=== PATIENT | female | born 1960 | race Caucasian/White ===

== ENCOUNTER 2019-12-14 14:44 | Emergency (ER) | payer BC, OTHER ==
--- OUTSIDE RECORDS SUMMARY | 2019-12-14 14:47 | XMS REPORT | Summary of Care ---
:1960 Author Organization [facility] [employer] Address [address] [place] [address] Care Team Providers Name Role Phone Ora Whiteside Primary Care Provider Reason for Visit Reason Comments Notification Encounter Details Date Type Department Care Team Description 12/13/2019 Telephone [facility] Family Medicine Dakotah Gomez MD Notification - [place] [address] [facility] [address] [place] [address] [place] [phone] Allergies Active Allergy Reactions Severity Noted Date Comments Ciprofloxacin Nausea and/or Vomiting 09/29/2018 Gabapentin Dizziness 01/17/2019 documented as of this encounter (statuses as of 12/14/2019) Medications Medication Sig Dispensed Refills Start Date End Date Status SERTRALINE HCL Take 250 mg by 0 Active (SERTRALINE ORAL) mouth. ALPRAZOLAM (XANAX Take by mouth. 0 Active ORAL) albuterol 90 Inhale 2 Puffs 8.5 g 1 09/29/2018 Active mcg/actuation every 6 (six) hours inhalerIndications: as needed for Bronchitis Wheezing or Shortness of Breath. documented as of this encounter (statuses as of 12/14/2019) Active Problems Problem Noted Date Low back pain 12/05/2015 Radiculitis, lumbosacral 12/05/2015 documented as of this encounter (statuses as of 12/14/2019) Social History Tobacco Use Types Packs/Day Years Used Date Never Smoker Smokeless Tobacco: Never Used Alcohol Use Drinks/Week oz/Week Comments No Sex Assigned at Date Recorded Not on file Job Start Date Occupation Industry Not on file Not on file Not on file Travel History Travel Start Travel End No recent travel history available. documented as of this encounter Last Filed Vital Signs Not on filedocumented in this encounter Plan of Treatment Health Maintenance Due Date Last Done Comments HEPATITIS C (HCV) SCREEN 1960 DTaP,Tdap,and Td Vaccines (1 - 1971 Tdap) PAP SMEAR 1981 Breast Cancer Screening 2000 (MAMMOGRAM) COLONOSCOPY 2010 Zoster Recombinant Vaccine 2010 (SHINGRIX) (1 of 2) INFLUENZA VACCINE (#1) 2019 PNEUMOCOCCAL 0-64 YEARS COMBINED Aged Out No longer eligible based on SERIES patient's age to complete this topic documented as of this encounter Results Not on filedocumented in this encounter Additional Health Concerns Infection Noted Time Resolved Time COVID-19 Confirmed 12/12/2019 2:36 PM CDT documented as of this encounter Insurance Payer Benefit Plan Subscriber ID Effective Dates Phone Address Type / Group BCBS OF [facility] [id number] 2013-Krissy [phone] [address] PPO/POS [place] - OUT OF t 7 [id number] [place] [address] documented as of this encounter
--- OUTSIDE RECORDS SUMMARY | 2019-12-14 14:47 | XMS REPORT ---
:1960 Author Organization [facility] Address [address] [place] [address] [address] [place] [address] Care Team Providers Name Role Phone Unavailable Unavailable Unavailable Problems This patient has no known problems. Allergies, Adverse Reactions, Alerts This patient has no known allergies or adverse reactions. Medications This patient has no known medications.
--- OUTSIDE RECORDS SUMMARY | 2019-12-14 14:47 | XMS REPORT | Summary of Care ---
:1960 Author Organization [facility] Address [address] [place] [id number] Care Team Providers Name Role Phone Ora Whiteside Primary Care Provider Reason for Visit Reason Comments Results Encounter Details Date Type Department Care Team Description 12/12/2019 Telephone [facility] Family Medicine Neha Alcantar FNP Results - [place] [address] [facility] [address] [place] [address] [place] [address] [phone] Allergies Active Allergy Reactions Severity Noted Date Comments Ciprofloxacin Nausea and/or Vomiting 09/29/2018 Gabapentin Dizziness 01/17/2019 documented as of this encounter (statuses as of 12/12/2019) Medications Medication Sig Dispensed Refills Start Date End Date Status SERTRALINE HCL Take 250 mg by 0 Active (SERTRALINE ORAL) mouth. ALPRAZOLAM (XANAX Take by mouth. 0 Active ORAL) albuterol 90 Inhale 2 Puffs 8.5 g 1 09/29/2018 Active mcg/actuation every 6 (six) hours inhalerIndications: as needed for Bronchitis Wheezing or Shortness of Breath. documented as of this encounter (statuses as of 12/12/2019) Active Problems Problem Noted Date Low back pain 12/05/2015 Radiculitis, lumbosacral 12/05/2015 documented as of this encounter (statuses as of 12/12/2019) Social History Tobacco Use Types Packs/Day Years [...] Results Not on filedocumented in this encounter Insurance Payer Benefit Plan Subscriber ID Effective Dates Phone Address Type / Group BCBS OF [facility] [id number] 2013-Krissy [phone] [address] PPO/POS [place] - OUT OF t 7 [id number] [place] [address] documented as of this encounter
--- OUTSIDE RECORDS SUMMARY | 2019-12-14 14:47 | XMS REPORT | Summary of Care ---
:1960 Author Organization [facility] Address [address] [place] [address] Care Team Providers Name Role Phone Ora Whiteside Primary Care Provider Reason for Visit Reason Comments Cough Body Aches Fever Headache Encounter Details Date Type Department Care Team Description 12/10/2019 Urgent Care [facility] Family Praful Duque MD [address] [place] [address] Viral illness (Primary Dx); [place] [id number], Acute Care Clinic Fever, unspecified fever cause [address] [place] [address] Allergies Active Allergy Reactions Severity Noted Date Comments Ciprofloxacin Nausea and/or Vomiting 09/29/2018 Gabapentin Dizziness 01/17/2019 documented as of this encounter (statuses as of 12/10/2019) Medications Medication Sig Dispensed Refills Start Date End Date Status SERTRALINE HCL Take 250 mg by 0 Active (SERTRALINE ORAL) mouth. ALPRAZOLAM (XANAX Take by mouth. 0 Active ORAL) albuterol 90 Inhale 2 Puffs 8.5 g 1 09/29/2018 Active mcg/actuation every 6 (six) hours inhalerIndications: as needed for Bronchitis Wheezing or Shortness of Breath. documented as of this encounter (statuses as of 12/10/2019) Active Problems Problem Noted Date Low back pain 12/05/2015 Radiculitis, lumbosacral 12/05/2015 documented as of this encounter (statuses as of 12/10/2019) Social History Tobacco Use Types Packs/Day Years Used Date Never Smoker Smokeless Tobacco: Never Used Alcohol Use Drinks/Week oz/Week Comments No Sex Assigned at Date Recorded Not on file Job Start Date Occupation Industry Not on file Not on file Not on file Travel History Travel Start Travel End No recent travel history available. documented as of this encounter Last Filed Vital Signs Vital Sign Reading Time Taken Comments Blood Pressure 144/88 12/10/2019 12:13 PM CDT Pulse 99 12/10/2019 12:13 PM CDT Temperature 37.1 C (98.8 F) 12/10/2019 12:13 PM CDT Respiratory Rate - - Oxygen Saturation 94% 12/10/2019 12:13 PM CDT Inhaled Oxygen Concentration - - Weight 111.1 kg (245 lb) 12/10/2019 12:13 PM CDT Height 166.4 cm (5' 5.5") 12/10/2019 12:13 PM CDT Body Mass Index 40.15 12/10/2019 12:13 PM CDT documented in this encounter Patient Instructions Patient InstructionsNeha Alcantar FNP - 12/10/2019 12:00 PM CDT1. Viral illness - POCT FLU A AND B (MOLECULAR) - NEGATIVE - CORONAVIRUS COVID-19 TESTING; Future - Quarantine until your COVID results are back Educated on the following at home care: -Increase water intake, min 64 oz daily -Advised to increase fluid intake, ensure to stay hydrated, and get plenty of rest -Take over the counter vitamin C -Take Tylenol as needed, avoid nsaids - Pt advised to clean all high risk surfaces -Wash hands often; use alcohol based hand fluid power mechanic that contains at least 60% alcohol -Cover mouth when coughing, wear mask -Stay in your own bedroom and use a separate bathroom -Keep at least 6 feet from you and others -Avoid sharing personal household items, dishes, glasses, cups, towels -Clean high traffic/touch areas daily. These include but not limited to: doorknobs, refrigerator/cabinet handles, phones, keyboards, tablets, light switches. -Monitor your symptoms. Take your temperature 2 times daily. -Monitor your symptoms. Go to the ED if worsening symptoms: chest pain, difficulty breathing, coughing up blood, weakness, dizziness, passing out. Follow-up with PCP as needed, if no improvement EDUCATION: Handouts given: "What to do if you are sick with COVID-19" CDC information guide reviewed with the patient and handout given to patient FOLLOW UP: Pt advised to call 911 or go to the nearest Emergency Department sooner for any worsening, persistent, or concerning symptoms ER precautions given documented in this encounter Progress Notes Neha Alcantar FNP - 12/10/2019 12:00 PM CDT Cc: Chief Complaint Patient presents with Cough Body Aches Fever Headache Rosa Heart is a 59 year old female presents to with concern for fever , body aches and cough. She started about 2 days ago with fever, cough, body aches and headache. TMAX 101. She's not takenany otc medications. She initially though it was from home improvements going on at her house. Denies any runny nose or congestion. Last night she had chills. She denies any travel or positive covid-19contacts. She denies any sob. URI Presenting symptoms: cough, fatigue and fever Presenting symptoms: no congestion, no ear pain, no facial pain, no rhinorrhea and no sore throat Cough: Cough characteristics: Dry Severity: Mild Onset quality: Gradual Duration: 2 days Timing: Intermittent Progression: Unchanged Chronicity: New Fatigue: Severity: Mild Duration: 1 day Timing: Intermittent Progression: Unchanged Severity: Mild Onset quality: Gradual Duration: 2 days Timing: Intermittent Progression: Unchanged Chronicity: New Relieved by: None tried Worsened by: Nothing Ineffective treatments: None tried Associated symptoms: myalgias Associated symptoms: no arthralgias, no headaches, no neck pain, no sinus pain, no sneezing, no swollen glands and no wheezing Risk factors: no chronic cardiac disease, no chronic kidney disease, no chronic respiratory disease,no diabetes mellitus, no immunosuppression, no recent illness, no recent travel and no sick contacts Allergies Rosa is allergic to ciprofloxacin and gabapentin. Medications Outpatient Medications Prior to Visit Medication Sig Dispense Refill albuterol 90 mcg/actuation inhaler Inhale 2 Puffs every 6 (six) hours as needed for Wheezing or Shortness of Breath. 8.5 g 1 ALPRAZOLAM (XANAX ORAL) Take by mouth. SERTRALINE HCL (SERTRALINE ORAL) Take 250 mg by mouth. No facility-administered medications prior to visit. Histories Past Medical History: Diagnosis Date Depression Past Surgical History: Procedure Laterality Date APPENDECTOMY SPINE SURGERY Social History Socioeconomic History Marital status: Spouse name: Not on file Number of children: Not on file Years of education: Not on file Highest education level: Not on file Occupational History Not on file Social Needs Financial resource strain: Not on file Food insecurity: Worry: Not on file Inability: Not on file Transportation needs: Medical: Not on file Non-medical: Not on file Tobacco Use Smoking status: Never Smoker Smokeless tobacco: Never Used Substance and Sexual Activity Alcohol use: No Drug use: No Sexual activity: Not on file Lifestyle Physical activity: Days per week: Not on file Minutes per session: Not on file Stress: Not on file Relationships Social connections: Talks on phone: Not on file Gets together: Not on file Attends yarsani service: Not on file Active member of club or organization: Not on file Attends meetings of clubs or organizations: Not on file Relationship status: Not on file Intimate partner violence: Fear of current or ex partner: Not on file Emotionally abused: Not on file Physically abused: Not on file Forced sexual activity: Not on file Other Topics Concern Not on file 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 HENT: Negative for congestion, ear pain, rhinorrhea, sinus pain, sneezing and sore throat. Respiratory: Positive for cough. Negative for shortness of breath, wheezing and stridor. Gastrointestinal: Negative for diarrhea, nausea and vomiting. Musculoskeletal: Positive for myalgias. Negative for arthralgias and neck pain. Skin: Negative for rash. Neurological: Negative for dizziness, weakness and headaches. All other systems reviewed and are negative. Vital Signs BP (!) 144/88 | Pulse 99 | Temp 37.1 C (98.8 F) (Tympanic) | Ht 5' 5.5" ( 1.664 m) | Wt 245 lb (111.1 kg) | SpO2 94% | BMI 40.15 kg/m Physical Exam Constitutional: She is oriented to person, place, and time. She appears well- developed and well-nourished. HENT: Head: Normocephalic and atraumatic. Right Ear: Tympanic membrane, external ear and ear canal normal. Left Ear: Tympanic membrane, external ear and ear canal normal. Nose: Nose normal. Mouth/Throat: Uvula is midline, oropharynx is clear and moist and mucous membranes are normal. Tonsils are 1+ on the right. Tonsils are 1+ on the left. Eyes: Conjunctivae are normal. Neck: Normal range of motion. Neck supple. Cardiovascular: Normal rate, regular rhythm and normal heart sounds. Exam reveals no gallop and no friction rub. No murmur heard. Pulmonary/Chest: Effort normal and breath sounds normal. No respiratory distress. She has no wheezes. She has no rales. Musculoskeletal: Normal range of motion. Neurological: She is alert and oriented to person, place, and time. Skin: Skin is warm and dry. Psychiatric: She has a normal mood and affect. Her behavior is normal. Nursing note and vitals reviewed. Assessment/Plan Rosa Heart is a 59 year old female presents to with concern for fever , body aches and cough. 1. Viral illness - POCT FLU A AND B (MOLECULAR) - NEGATIVE - CORONAVIRUS COVID-19 TESTING; Future - Quarantine until your COVID results are back - COVID-19 handout given Educated on the following at home care: -Increase water intake, min 64 oz daily -Advised to increase fluid intake, ensure to stay hydrated, and get plenty of rest -Take over the counter vitamin C -Take Tylenol as needed, avoid nsaids - Pt advised to clean all high risk surfaces -Wash hands often; use alcohol based hand fluid power mechanic that contains at least 60% alcohol -Cover mouth when coughing, wear mask -Stay in your own bedroom and use a separate bathroom -Keep at least 6 feet from you and others -Avoid sharing personal household items, dishes, glasses, cups, towels -Clean high traffic/touch areas daily. These include but not limited to: doorknobs, refrigerator/cabinet handles, phones, keyboards, tablets, light switches. -Monitor your symptoms. Take your temperature 2 times daily. -Monitor your symptoms. Go to the ED if worsening symptoms: chest pain, difficulty breathing, coughing up blood, weakness, dizziness, passing out. Follow-up with PCP as needed, if no improvement EDUCATION: Handouts given: "What to do if you are sick with COVID-19" CDC information guide reviewed with the patient and handout given to patient FOLLOW UP: Pt advised to call 911 or go to the nearest Emergency Department sooner for any worsening, persistent, or concerning symptoms ER precautions given 2. Fever, unspecified fever cause - POCT FLU A AND B (MOLECULAR) - NEGATIVE - CORONAVIRUS COVID-19 TESTING; Future - Quarantine until your COVID results are back Plan of care, desired health behaviors, goals, and medication discussed with patient. Education resources provided and reviewed with AVS. Patient/guardian/family verbalized understanding & agrees to plan of care. If applicable, the [employer] database was accessed to review any controlled substance prescription claims data. The [employer] prescription claims data in [employer] was reviewed to assess patient compliance with the medication treatment plan. Urgent Care precautions and follow up : 1. Return to clinic if your symptoms should worsen or fail to improve within 72 hours. 2. The care provided in the urgent care was for acute problems only. 3. You should follow up with your primary care provider within 72 hours. 4. Make sure you are staying adequately hydrated. MAY FOLLOW-UP WITH A PROVIDER OF YOUR CHOICE, SUCH : 1. A PHYSICIAN OF YOUR CHOICE OR, IF YOU WISH TO FOLLOW-UP WITHIN THE [facility], MAY TRY THESE OPTIONS (CLINIC APPOINTMENTS AVAILABLE ON [id number] BASIS): 1. SCHEDULE AN APPOINTMENT ONLINE AT [email or web address] 2. OR CALL THE [facility] AT OR 3. OR CALL YOUR [facility] PHYSICIAN'S OFFICE DIRECTLY IF YOU ARE ALREADY AN ESTABLISHED [facility] PATIENT. After hours care nurse access center available by calling [phone] 24 hours 7 days per week. Neha HOLLIS [facility] Milvia Guzman MA - 12/10/2019 12:00 PM CDTPt states her symptoms started Wednesday evening she felt run down, body aches, fever, dry cough, headache. Fever last night 101.0 this morning 99.6, before she left 99.0, fever has been coming down since this morning. No flu vaccine this seasonElectronically signed by Milvia Madden MA at 12/09 12:39 PM CDTdocumented in this encounter Plan of Treatment Name Type Priority Associated Diagnoses Order Schedule CORONAVIRUS COVID-19 LAB Routine Viral illness Expected: 12/10/2019, TESTING Fever, unspecified fever Expires: 12/09/2020 cause Health Maintenance Due Date Last Done Comments [...] this topic documented as of this encounter Procedures Procedure Name Priority Date/Time Associated Diagnosis Comments POCT FLU A AND B Routine 12/10/2019 Viral illness Results for this (MOLECULAR) Fever, unspecified procedure are in the fever cause results section. documented in this encounter Results POCT FLU A AND B (MOLECULAR) (12/10/2019) POCT INFLUENZA A neg Negative - Negative POCT INFLUENZA B neg Negative - Negative Specimen Swab documented in this encounter Visit Diagnoses Diagnosis Viral illness - Primary Unspecified viral infection, in conditions classified elsewhere and of unspecified site Fever, unspecified fever cause documented in this encounter Insurance Payer Benefit Plan Subscriber ID Effective Dates Phone Address Type / Group [facility] [id number] 2013-Krissy [phone] [address] PPO/POS [place] - OUT OF t 7 [id number] [place] [address] documented as of this encounter
--- OUTSIDE RECORDS SUMMARY | 2019-12-14 14:47 | XMS REPORT | Summary of Care ---
:1960 Author Organization [facility] Address [address] [place] [address] Care Team Providers Name Role Phone Ora Whiteside Primary Care Provider Reason for Visit Reason Comments Fever Encounter Details Date Type Department Care Team Description 12/09/2019 Telemedicine Visit [facility] Urgent Praful Duque MD [address] [facility] [address] [place] [address] Cough (Primary Dx); [facility] Care, Provider 7 Adult Urgent Fever, unspecified fever cause; [place] Advice Given About Covid-19 Virus by Telephone [address] [facility] [address] [place] [address] Allergies Active Allergy Reactions Severity Noted Date [...] Signs Not on filedocumented in this encounter Progress Notes Praful Duque MD - 12/10/2019 10:45 AM CDT TELEHEALTH NOTE Verbal consent obtained from Patient: Rosa Heart for telehealth services provided below. Communication with patient was conducted via Telephone. Location of Patient: Home Location of Provider: Home Date of Service: 12/10/2019 Chief Complaint: Fever and cough HPI: Rosa Heart is a 59 year old female with c/o Cough and Fever. Wednesday evening started coughing, ache in body, had chills, Wednesday am temp 100 degree 5pm 99.7 now 101 F. 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 Did not have the Flu Vaccine Past Medical History: Diagnosis Date Depression MEDICATIONS: No outpatient medications have been marked as taking for the 12/10/19 encounter ( Appointment) with Care, Provider 7 Adult Urgent. ROS Fever+ Cough+ non productive Mild-Mod SOB +ve exposure to public (no body was coughing) No Known +ve COVID-19 exposure +ve Body ache Denies FRITZ Denies CP Mild - Mod SOB TELEHEALTH EXAM Patient alert and Oriented mild distress Coughing Alert and oriented ASSESSMENT/ PLAN Rosa Heart is a 59 year old female with PMH as above presenting with: R05 Cough (primary encounter diagnosis) R50.9 Fever, unspecified fever cause Z71.89 Advice Given About Covid-19 Virus by Telephone CRITERIA FOR COVID-19 TESTING Per [facility] Guidelines: ([email or web address]) Clinical Features Epidemiologic Risk 1. Fever or signs/symptoms of lower respiratory illness (e.g. cough or shortness of breath) AND 1. Any person, including health care workers, who has had close contact with a laboratory-confirmed COVID-19 patient within 14 days of symptom onset 2. Fever and signs/symptoms of a lower respiratory illness (e.g., cough or shortness of breath) requiring hospitalization AND 3. A history of travel from affected geographic areas within 14 days of symptom onset OR An individual(s) with risk factors that put them at higher risk of poor outcomes 3. Fever and signs/symptoms of lower respiratory illness (e.g., cough or shortness of breath) requiring hospitalization AND 4. No Source of exposure has been identified Went over the criteria Patient worried about COVID as was working in an environment where several people comes to her office with eledrly father at home wants to get tested. Though low risk I have asked her to go to get checked for COVID After visit summary (AVS ) documentation will be available through [email or web address] for this encounter. A total of 25 minutes was spent on the Telephone with the patient. Suggested that she goes to get the flu test and if negative the COVID test To call [phone] Praful Duque MD documented in this encounter Plan of Treatment Health [...] Results Not on filedocumented in this encounter Visit Diagnoses Diagnosis Cough - Primary Fever, unspecified fever cause Advice Given About Covid-19 Virus by Telephone documented in this encounter Insurance Payer Benefit Plan Subscriber ID Effective Dates Phone Address Type / Group [facility] [id number] 2013-Krissy [phone] [address] PPO/POS [place] - OUT OF t 7 [id number] [place] [address] documented as of this encounter
--- OUTSIDE RECORDS SUMMARY | 2019-12-14 14:47 | XMS REPORT | Summary of Care ---
:1960 Author Organization [facility] Address [address] [place] [address] Care Team Providers Name Role Phone Ora Whiteside Primary Care Provider Reason for Visit Reason Comments Cough coronavirus Encounter Details Date Type Department Care Team Description 12/13/2019 Nurse Triage [facility] Graciela Reaves RN Cough (coronavirus) [address] [place] [id number] Allergies Active Allergy Reactions Severity Noted Date Comments Ciprofloxacin Nausea and/or Vomiting 09/29/2018 Gabapentin Dizziness 01/17/2019 documented as of this encounter (statuses as of 12/13/2019) Medications Medication Sig Dispensed Refills Start Date End Date Status SERTRALINE HCL Take 250 mg by 0 Active (SERTRALINE ORAL) mouth. ALPRAZOLAM (XANAX Take by mouth. 0 Active ORAL) albuterol 90 Inhale 2 Puffs 8.5 g 1 09/29/2018 Active mcg/actuation every 6 (six) hours inhalerIndications: as needed for Bronchitis Wheezing or Shortness of Breath. documented as of this encounter (statuses as of 12/13/2019) Active Problems Problem Noted Date Low back pain 12/05/2015 Radiculitis, lumbosacral 12/05/2015 documented as of this encounter (statuses as of 12/13/2019) Social History Tobacco Use Types Packs/Day Years [...] Phone Address Type / Group [employer] [facility] [id number] 2013-Krissy [phone] [address] PPO/POS [place] - OUT OF 7 [id number] [place] [address] documented as of this encounter
[2019-12-14] MEDS ORDERED: NA CHLORIDE 0.9% 3,000 ML ONE (15:25)
[2019-12-14 15:36] LABS: Basophils % 0.9 % (0-1.3); Hematocrit 41.3 % (36.0-45.0); MPV 9.2 fL (7.6-11.3); RBC Red Blood Cell Count 4.59 M/uL (3.86-4.86)
[2019-12-14 15:39] LABS: Protime INR 1.02
[2019-12-14 15:56] LABS: ALT/SGPT 32 U/L (12-78); AST/SGOT 19 U/L (15-37); Alkaline Phosphatase 78 U/L (45-117); Amylase Level 47 U/L (25-115); BUN Blood Urea Nitrogen 17 mg/dL (7-18); Bicarbonate 25 mmol/L (21-32); Bilirubin Direct 0.1 mg/dL (0-0.2); Bilirubin Total 0.4 mg/dL (0.2-1.0); CKMB Creatine Kinase MB < 1.0 ng/mL (0.3-3.6); Creatine Phosphokinase 35 U/L (26-192); Glucose Level 97 mg/dL (74-106); Lipase 231 U/L (73-393); Potassium 3.5 mmol/L (3.5-5.1); Protein, Total 8.2 g/dL (6.4-8.2); Sodium Level 138 mmol/L (136-145); Troponin (Emerg Dept Use Only) < 0.02 ng/mL (0.0-0.045)
--- NOTE | 2019-12-14 17:42 | RAD REPORT ---
EXAM DESCRIPTION: RAD - Chest Single View - 12/14/2019 3:55 pm CLINICAL HISTORY: Generalized back and leg pain Chest pain. COMPARISON: No comparisons FINDINGS: Portable technique limits examination quality. The lungs are grossly clear. The heart is normal in size. No displaced fractures.Cervical hardware pl ate. IMPRESSION: No acute intrathoracic process suspected.
--- NOTE | 2019-12-14 18:26 | ER ---
Nurse's Notes [facility] Name: Rosa Heart Age: 59 yrs Sex: Female : 1960 Arrival Date: 12/14/2019 Time: 14:46 Bed 7 Private MD: Dakotah Gomez S Diagnosis: Shortness of breath;Viral infection, [id number];Myalgia Presentation: 12/13 14:55 Chief complaint: Patient states: FLU-LIKE S/S SINCE WEDNESDAY, CONFIRMED +COVID 2 DAYS bp AGO, NOW WITH INCREASING DYSPNEA. Coronavirus screen: Surgical mask placed on patient. Patient moved to private room, placed in contact and droplet isolation with eye protection until further assessment. Patient reports a cough. Patient reports shortness of breath or difficulty breathing. Patient reports a measured and/or subjective temperature greater than 100.4F. Patient denies travel on a cruise ship or to a country the [facility] currently lists as an affected area. Patient denies contact with known and/or suspected case of COVID-19. Ebola Screen: No symptoms or risks identified at this time. Initial Sepsis Screen: Does the patient meet any 2 criteria? RR > 20 per min. No. Patient's initial sepsis screen is negative. Does the patient have a suspected source of infection? Yes: Productive cough/pneumonia. Risk Assessment: Do you want to hurt yourself or someone else? Patient reports no desire to harm self or others. 14:55 Method Of Arrival: Wheelchair bp 14:55 Acuity: RONY 2 bp Triage Assessment: 14:55 General: Appears in no apparent distress. comfortable, obese, Behavior is cooperative, bp appropriate for age, anxious. Pain: Denies pain. EENT: No deficits noted. Neuro: Level of Consciousness is awake, alert, obeys commands, Oriented to person, place, time, situation, Appropriate for age. Cardiovascular: No deficits noted. Rhythm is sinus rhythm. Respiratory: Reports shortness of breath cough that is non-productive, Airway is patent Respiratory effort is even, labored, Breath sounds are clear bilaterally. Onset: The symptoms/episode began/occurred yesterday, the patient has moderate shortness of breath. GI: No signs and/or symptoms were reported involving the gastrointestinal system. : No signs and/or symptoms were reported regarding the genitourinary system. Derm: No deficits noted. Musculoskeletal: No deficits noted. Historical: - Allergies: 15:38 Ciprofloxacin; bp 15:38 GABAPENTIN; bp - Home Meds: 15:38 sertraline 100 mg oral tab 3 tabs nightly [Active]; bp - PMHx: 15:38 None; bp - Immunization history:: Adult Immunizations up to date. - Social history:: Smoking status: Patient denies any tobacco usage or history of. Screenin:55 Abuse screen: Denies threats or abuse. Denies injuries from another. Nutritional bp screening: No deficits noted. Tuberculosis screening: No symptoms or risk factors identified. Fall Risk None identified. Assessment: 15:00 General: SEE TRIAGE NOTE. Cardiovascular: Rhythm is sinus rhythm. bp 17:00 Reassessment: PT REMAINS ON DROPLET PXN. VS STABLE ON MONITOR, MAINTAINING SP02 ON ROOM bp AIR. 18:42 Reassessment: PT D/C HOME AMBULATORY, MASK IN PLACE, DX WITH COVID-19. bp Vital Signs: 14:55 BP 131 / 82; Pulse 86; Resp 12; Temp 100.0; Pulse Ox 98% on R/A; Weight 111.13 kg; bp Height 5 ft. 5 in. (165.10 cm); 15:18 Weight 111.13 kg; em1 15:30 BP 119 / 77; Pulse 79; Resp 18; Pulse Ox 94% ; bp 16:49 BP 122 / 73; Pulse 76; Resp 24; Pulse Ox 98% on R/A; Pain 5/10; lm7 17:13 BP 124 / 75; Pulse 77; Resp 15; Pulse Ox 96% ; bp 18:00 BP 127 / 84; Pulse 81; Resp 19; Temp 98.1; Pulse Ox 98% ; bp 18:30 BP 120 / 81; Pulse 85; Resp 15; Temp 98.5; Pulse Ox 96% ; bp 14:55 Body Mass Index 40.77 (111.13 kg, 165.10 cm) bp ED Course: 14:46 Patient arrived in ED. dp 14:47 Dakotah Gomez MD is Private Physician. dp 14:52 Hugo Mcgregor MD is Attending Physician. kdr 14:55 Dmitri Lamb, YIN is Primary Nurse. bp 14:55 Arm band placed on. bp 14:55 Patient has correct armband on for positive identification. Bed in low position. Call bp light in reach. Side rails up X2. 15:10 Inserted saline lock: 20 gauge in right antecubital area, using aseptic technique. bp Blood collected. 15:37 Triage completed. bp 15:56 Chest Single View XRAY In Process Unspecified. EDMS 18:24 Dakotah Gomez MD is Referral Physician. kdr 18:42 No provider procedures requiring assistance completed. IV discontinued, intact, bp bleeding controlled, No redness/swelling at site. Pressure dressing applied. Administered Medications: 15:30 Drug: NS 0.9% (30 ml/kg) 30 ml/kg Route: IV; Rate: bolus; Site: right antecubital; bp 18:40 Follow up: IV Status: Completed infusion; IV Intake: 3000ml bp Intake: 18:40 IV: 3000ml; Total: 3000ml. bp Outcome: 18:25 Discharge ordered by MD. kdr 18:42 Discharged to home ambulatory, with family. bp 18:42 Condition: stable 18:42 Discharge instructions given to patient, Instructed on discharge instructions, follow up and referral plans. medication usage, Demonstrated understanding of instructions, follow-up care, medications, Prescriptions given X 1. 18:43 Patient left the ED. bp Signatures: Dispatcher [employer] EDMS Hugo Mcgregor MD MD kdr Martinez, Eric em1 Maranda Bo lm7 Dmitri Lamb, YIN RN bp Joel Lowry dp Corrections: (The following items were deleted from the chart) 15:40 15:38 General: Appears in no apparent distress. comfortable, obese, Behavior is bp cooperative, appropriate for age, anxious, bp 15:40 15:38 Pain: Denies pain. bp bp 15:40 15:38 EENT: No deficits noted. bp bp 15:40 15:38 Neuro: Level of Consciousness is awake, alert, obeys commands, Oriented to bp person, place, time, situation, Appropriate for age bp 15:40 15:38 Cardiovascular: No deficits noted. Rhythm is sinus rhythm bp bp 15:40 15:38 Respiratory: Reports shortness of breath cough that is non-productive, Airway is bp patent Respiratory effort is even, labored, Breath sounds are clear bilaterally. Onset: The symptoms/episode began/occurred yesterday, the patient has moderate shortness of breath bp 15:40 15:38 GI: No signs and/or symptoms were reported involving the gastrointestinal system. bp bp 15:40 15:38 : No signs and/or symptoms were reported regarding the genitourinary system. bp bp 15:40 15:38 Derm: No deficits noted. bp bp 15:40 15:38 Musculoskeletal: No deficits noted. bp bp 15:43 15:41 General: SEE TRIAGE NOTE. bp bp 15:43 15:41 Cardiovascular: Rhythm is sinus rhythm bp bp
--- NOTE | 2019-12-14 18:27 | EDPHYS ---
Physician Documentation [facility] Name: Rosa Heart Age: 59 yrs Sex: Female : 1960 Arrival Date: 12/14/2019 Time: 14:46 Bed 7 Private MD: Dakotah Gomez S ED Physician Hugo Mcgregor HPI: 12/13 18:19 This 59 yrs old Female presents to ER via Wheelchair with complaints of kdr Shortness Of Breath, Tested positive for COVID19, Fever. 18:19 The patient has shortness of breath at rest, with light activity. Onset: The kdr symptoms/episode began/occurred gradually, 3 day(s) ago. Duration: The symptoms are continuous, and are steadily getting worse. The patient's shortness of breath is aggravated by exertion, light activity, is alleviated by rest. Associated signs and symptoms: Pertinent positives: back and arm leg pain. Severity of symptoms: At their worst the symptoms were mild moderate just prior to arrival, in the emergency department the symptoms are unchanged. The patient has not experienced similar symptoms in the past. The patient has been recently seen by a physician: The patient tested positive for COVID-19 two days ago. Historical: - Allergies: 15:38 Ciprofloxacin; bp 15:38 GABAPENTIN; bp - Home Meds: 15:38 sertraline 100 mg oral tab 3 tabs nightly [Active]; bp - PMHx: 15:38 None; bp - Immunization history:: Adult Immunizations up to date. - Social history:: Smoking status: Patient denies any tobacco usage or history of. ROS: 18:19 Eyes: Negative for injury, pain, redness, and discharge, ENT: Negative for injury, kdr pain, and discharge, Neck: Negative for injury, pain, and swelling, Cardiovascular: Negative for chest pain, palpitations, and edema, Abdomen/GI: Negative for abdominal pain, nausea, vomiting, diarrhea, and constipation, Back: Negative for injury and pain, : Negative for injury, bleeding, discharge, and swelling, MS/Extremity: Negative for injury and deformity, Skin: Negative for injury, rash, and discoloration, Neuro: Negative for headache, weakness, numbness, tingling, and seizure activity. Psych: Negative for depression, anxiety, suicide ideation, homicidal ideation, and hallucinations, Allergy/Immunology: Negative for hives, rash, and allergies, Endocrine: Negative for neck swelling, polydipsia, polyuria, polyphagia, and marked weight changes, Hematologic/Lymphatic: Negative for swollen nodes, abnormal bleeding, and unusual bruising. 18:19 Respiratory: Positive for dyspnea on exertion, shortness of breath, Negative for hemoptysis, orthopnea, pleurisy, sputum production, wheezing. Exam: 18:19 Constitutional: This is a well developed, well nourished patient who is awake, alert, kdr and in no acute distress. The patinet appears very mildly uncompoftable but o/w not in any acute distress and VS appear stable Head/Face: Normocephalic, atraumatic. Eyes: Pupils equal round and reactive to light, extra-ocular motions intact. Lids and lashes normal. Conjunctiva and sclera are non-icteric and not injected. Cornea within normal limits. Periorbital areas with no swelling, redness, or edema. Neck: Trachea midline, no thyromegaly or masses palpated, and no cervical lymphadenopathy. Supple, full range of motion without nuchal rigidity, or vertebral point tenderness. No Meningismus. Chest/axilla: Normal chest wall appearance and motion. Nontender with no deformity. No lesions are appreciated. Cardiovascular: Regular rate and rhythm with a normal S1 and S2. No gallops, murmurs, or rubs. Normal PMI, no JVD. No pulse deficits. Respiratory: Lungs have equal breath sounds bilaterally, clear to auscultation and percussion. No rales, rhonchi or wheezes noted. No increased work of breathing, no retractions or nasal flaring. Abdomen/GI: Soft, non-tender, with normal bowel sounds. No distension or tympany. No guarding or rebound. No evidence of tenderness throughout. Back: No spinal tenderness. No costovertebral tenderness. Full range of motion. Skin: Warm, dry with normal turgor. Normal color with no rashes, no lesions, and no evidence of cellulitis. MS/ Extremity: Pulses equal, no cyanosis. Neurovascular intact. Full, normal range of motion. Neuro: Awake and alert, GCS 15, oriented to person, place, time, and situation. Cranial nerves II-XII grossly intact. Motor strength 5/5 in all extremities. Sensory grossly intact. Cerebellar exam normal. Normal gait. Psych: Awake, alert, with orientation to person, place and time. Behavior, mood, and affect are within normal limits. Vital Signs: 14:55 BP 131 / 82; Pulse 86; Resp 12; Temp 100.0; Pulse Ox 98% on R/A; Weight 111.13 kg; bp Height 5 ft. 5 in. (165.10 cm); 15:18 Weight 111.13 kg; em1 15:30 BP 119 / 77; Pulse 79; Resp 18; Pulse Ox 94% ; bp 16:49 BP 122 / 73; Pulse 76; Resp 24; Pulse Ox 98% on R/A; Pain 5/10; lm7 17:13 BP 124 / 75; Pulse 77; Resp 15; Pulse Ox 96% ; bp 18:00 BP 127 / 84; Pulse 81; Resp 19; Temp 98.1; Pulse Ox 98% ; bp 18:30 BP 120 / 81; Pulse 85; Resp 15; Temp 98.5; Pulse Ox 96% ; bp 14:55 Body Mass Index 40.77 (111.13 kg, 165.10 cm) bp MDM: 18:19 Data reviewed: vital signs, nurses notes, lab test result(s), radiologic studies. kdr Counseling: I had a detailed discussion with the patient and/or guardian regarding: the historical points, exam findings, and any diagnostic results supporting the discharge/admit diagnosis, lab results, radiology results, the need for outpatient follow up. ED course: The patient was feeling slightly better and was resting comfortably in bed in the ED at the time of discharge. She was happy with the care provided and the plan for discharge and follow-up. 18:25 Patient medically screened. kdr 18:28 ED course: [facility] [employer] 110. kdr 12/13 15:14 Order name: Amylase, Serum; Complete Time: 17: kdr 12/13 15:14 Order name: Basic Metabolic Panel; Complete Time: 17:02 kdr 12/13 15:14 Order name: Blood Culture Adult (2) kdr 12/13 15:14 Order name: CBC with Diff; Complete Time: 17: kdr 12/13 15:14 Order name: Ckmb; Complete Time: 17: kdr 12/13 15:14 Order name: CPK; Complete Time: 17: kdr 12/13 15:14 Order name: Lactate; Complete Time: 17:02 kdr 12/13 15:14 Order name: LFT's; Complete Time: 17: kdr 12/13 15:14 Order name: Lipase; Complete Time: 17: kdr 12/13 15:14 Order name: Procalcitonin; Complete Time: 17: kdr 12/13 15:14 Order name: Protime (+inr); Complete Time: 17: kdr 12/13 15:14 Order name: Ptt, Activated; Complete Time: 17: kdr 12/13 15:14 Order name: Troponin (emerg Dept Use Only); Complete Time: 17: kdr 12/13 15:14 Order name: Chest Single View XRAY; Complete Time: 17:47 kdr 12/13 15:14 Order name: Accucheck; Complete Time: 15:44 kdr 12/13 15:14 Order name: Cardiac monitoring; Complete Time: 15:44 kdr 12/13 15:14 Order name: IV Saline Lock - Large Bore; Complete Time: 15:44 kdr 12/13 15:14 Order name: Labs collected and sent; Complete Time: 15:44 kdr 12/13 15:14 Order name: O2 Per Protocol; Complete Time: 15:44 kdr 12/13 15:14 Order name: O2 Sat Monitoring; Complete Time: 15:44 kdr 12/13 15:45 Order name: Glucose, Ancillary Testing; Complete Time: 17:02 EDMS 12/13 17:03 Order name: VS Recheck; Complete Time: 17:10 kdr Administered Medications: 15:30 Drug: NS 0.9% (30 ml/kg) 30 ml/kg Route: IV; Rate: bolus; Site: right antecubital; bp 18:40 Follow up: IV Status: Completed infusion; IV Intake: 3000ml bp Disposition: 12/14/19 18:25 Discharged to Home. Impression: Shortness of breath, Viral infection, unspecified - COVID-19, Myalgia. - Condition is Stable. - Discharge Instructions: Musculoskeletal Pain, Muscle Pain, Adult, Shortness of Breath, [id number], Viral Respiratory Infection, [id number]. - Prescriptions for Tylenol- Codeine #3 300-30 mg Oral Tablet - take 2 tablets by ORAL route every 6 hours As needed; 16 tablet. - Medication Reconciliation Form, Thank You Letter, Prescription Opioid Use form. - Follow up: Dakotah Gomez MD; When: 2 - 3 days; Reason: If symptoms return, Further diagnostic work-up, Recheck today's complaints, Continuance of care, Re-evaluation by your physician. - Problem is new. - Symptoms have improved. Signatures: Dispatcher [employer] EDMS Hugo Mcgregor MD MD kdr Peltier, Brian RN RN bp Corrections: (The following items were deleted from the chart) 17:10 15:14 EKG - Nurse/Tech ordered. kdr bp 18:43 18:25 12/14/2019 18:25 Discharged to Home. Impression: Shortness of breath; Viral bp infection, unspecified - COVID-19; Myalgia. Condition is Stable. Forms are Medication Reconciliation Form, Thank You Letter, Antibiotic Education, Prescription Opioid Use. Follow up: Dakotah Gomez; When: 2 - 3 days; Reason: If symptoms return, Further diagnostic work-up, Recheck today's complaints, Continuance of care, Re-evaluation by your physician. Problem is new. Symptoms have improved. kdr
[2019-12-14 19:33] VITALS: BP 120/81; TEMP 98.5; O2SAT 96
== END 2019-12-14 18:43 | disposition home or self-care (01) ==
LOC: ER 14:44
DX: M79.10 Myalgia, unspecified site (principal); B97.29 Other coronavirus as the cause of diseases classified elsewhere; Z88.1 Allergy status to other antibiotic agents; Z88.8 Allergy status to other drugs, medicaments and biological substances
CPT/HCPCS: 96365; 87040 ×2; 85025; 80048; 36415; 82150; 82550; 85610; 82947; 80076; 83605; 85730; 84484; 82553; 83690; 84145; 71045; 99284; 96366; J7030